=== PATIENT | male | born 1980 | race Caucasian/White ===

== ENCOUNTER 2018-03-19 13:29 | Emergency (ER) | payer OTHER ==
[2018-03-19] MEDS ORDERED: Sodium Chloride 0.9% 1,000 ML IV ONE ×2 (13:59→14:54)
[2018-03-19 14:30] LABS: CHLORIDE,CL 95 mmol/L (101-111); SODIUM,NA 134 mmol/L (135-145)
[2018-03-19] MEDS ORDERED: Magnesium Sulfate/Water 2 GM in Premix Bag 1 BAG IV ONE (14:54)
[2018-03-19] MEDS ORDERED: Ketorolac 30 MG/ML SDV IVPUSH ONE (14:54)
--- NOTE | 2018-03-19 17:01 | EDM.PDOC ---
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 Pt states he has not drank enough water and has been working very hard out in "nearly intolerable heat". Pt began to feel lightheaded, developed a headache, nausea, generalized body ache/cramps, then pt had a witnessed syncopal episode with twitching. Pt struck the Rt face/forehead/frontal scalp when he fell. Now c/o 7/ 10 posterior headache. Pt states he was very hot and sweaty, but then felt suddenly cold with chills, goose bumps, and he quit sweating. Onset: Today Duration: Constant Location: Reports: Head, Generalized Quality: Reports: Ache, Other (cramping) Severity: Severe Improves with: Reports: None Worsens with: Reports: None Associated Symptoms: Reports: No Other Symptoms Right Head Pain Score (Numeric/FACES): 6 - Related Data Allergies Allergy/AdvReac Type Severity Reaction Status Date / Time No Known Allergies Allergy Verified 03/19/18 16:23 Home Meds: Home Meds . [No Known Home Meds] 03/19/18 [History] Past Medical History - Past Health History Medical/Surgical History: Denies Medical/Surgical History Social & Family History - Family History Family Medical History: Noncontributory - Tobacco Use Smoking Status *Q: Never Smoker - Living Situation & Occupation Occupation: Employed ED ROS GENERAL - Review of Systems Review Of Systems: ROS reveals no pertinent complaints other than HPI. ED EXAM, GENERAL - Physical Exam Exam: See Below Exam Limited By: No Limitations General Appearance: Alert, No Apparent Distress, Anxious Eye Exam: Bilateral Eye: EOMI, Normal Fundi, Nystagmus (lateral gaze), PERRL Ears: Normal External Exam, Normal Canal, Hearing Grossly Normal, Normal TMs Nose: Normal Inspection, Normal Mucosa, No Blood Throat/Mouth: Normal Lips, Normal Teeth, Normal Gums, Normal Oropharynx, Normal Voice, No Airway Compromise, Other (dry oral membranes) Head: Normocephalic, Other (superficial abrasion Rt face with contusion) Neck: Normal Inspection, Supple, Non-Tender, Full Range of Motion. No: Lymphadenopathy (L), Lymphadenopathy (R) Respiratory/Chest: No Respiratory Distress, Lungs Clear, Normal Breath Sounds, No Accessory Muscle Use, Chest Non-Tender Cardiovascular: Normal Peripheral Pulses, Regular Rate, Rhythm, No Edema, No Gallop, No JVD, No Murmur, No Rub Peripheral Pulses: 3+: Radial (L), Radial (R) GI/Abdominal: Normal Bowel Sounds, Soft, Non-Tender, No Organomegaly, No Distention, No Abnormal Bruit, No Mass (Male) Exam: Deferred Rectal (Males) Exam: Deferred Back Exam: Normal Inspection, Full Range of Motion. No: CVA Tenderness (L), CVA Tenderness (R) Extremities: Normal Inspection, Normal Range of Motion, Non-Tender, Normal Capillary Refill, No Pedal Edema Neurological: Alert, Oriented, CN II-XII Intact, Normal Cognition, Normal Gait, No Motor/Sensory Deficits, Other (tremor/shaking on arrival, improved following tx in ER with IVF and mag. replacement) Psychiatric: Anxious Skin Exam: Intact, No Rash, Diaphoretic, Pallor EKG INTERPRETATION EKG Date: 03/19/18 Time: 15:11 Rhythm: Other (sinus rhythm) Rate (Beats/Min): 73 [place]: Normal P-Wave: Present QRS: Other (nonspecific intraventricular conduction delay.) ST-T: Normal QT: Normal Comparison: NA - No Prior EKG Course - Vital Signs Last Recorded V/S: Last Vital Signs Temp 36.6 C 03/19/18 13:40 Pulse 84 03/19/18 13:40 Resp 14 03/19/18 13:40 BP 153/100 H 03/19/18 13:40 Pulse Ox 98 03/19/18 13:40 - Orders/Labs/Meds Orders: Active Orders 24 hr Category Date Time Status Blood Glucose Check, Bedside [RC] ONETIME Care 03/19/18 13:57 Active EKG 12 Lead [EKG Documentation Completion] [RC] STAT Care 03/19/18 13:57 Active Orthostatic Vital Signs [RC] ASDIRECTED Care 03/19/18 13:58 Active Chest 1V Frontal [CR] Stat Exams 03/19/18 13:59 Taken Head wo Cont [CT] Stat Exams 03/19/18 13:58 Taken DRUG SCREEN URINE BIORAD [URCHEM] Stat Lab 03/19/18 14:02 Ordered UA W/MICROSCOPIC [URIN] Stat Lab 03/19/18 14:02 Ordered Magnesium Sulfate/Water [Magnesium Sulfate 2 GM in Med 03/19/18 14:54 Active Water 50 ML] 2 gm Premix Bag 1 bag IV ONETIME Medication Orders Magnesium Sulfate 2 gm/ Premix 50 mls @ 25 mls/hr IV ONETIME ONE Stop: 03/19/18 16:53 Last Admin: 03/19/18 15:02 Dose: 25 mls/hr Labs: Laboratory Tests 03/19/18 03/19/18 03/19/18 Range/Units 13:48 13:48 13:48 WBC 5.7 (5.0-10.0) 10^3/uL RBC 4.19 L (4.6-6.2) 10^6/uL Hgb 14.0 (14.0-18.0) g/dL Hct 40.7 (40.0-54.0) % MCV 97.1 (80-100) fL MCH 33.4 (27.0-34.0) pg MCHC 34.4 (33.0-35.0) g/dL Plt Count 131 L (150-450) 10^3/uL Neut % (Auto) 71.9 (42.2-75.2) % Lymph % (Auto) 12.5 L (20.5-50.1) % [place] % (Auto) 14.5 H (2-8) % Eos % (Auto) 0.4 L (1.0-3.0) % Baso % (Auto) 0.7 (0.0-1.0) % D-Dimer, Quantitative 582 H (0-400) ng/mL Sodium 134 L (135-145) mmol/L Potassium 3.7 (3.6-5.0) mmol/L Chloride 95 L (101-111) mmol/L Carbon Dioxide 28.0 (21.0-31.0) mmol/L Anion Gap 14.7 BUN 12 (7-18) mg/dL Creatinine 0.7 (0.6-1.3) mg/dL Est Cr Clr Drug Dosing TNP Estimated GFR (MDRD) > 60 BUN/Creatinine Ratio 17.14 Glucose 93 (74-105) mg/dL Calcium 9.6 (8.4-10.2) mg/dl Magnesium 1.5 L (1.8-2.5) mg/dL Total Bilirubin 1.2 H (0.2-1.0) mg/dL AST 70 H (10-42) IU/L ALT 54 (10-60) IU/L Alkaline Phosphatase 80 (42-121) IU/L Creatine Kinase (26-174) IU/L Creatine Kinase Index (0-2.4) % CK-MB (CK-2) (0.4-4.7) ng/mL Troponin I < 0.02 (0.00-0.02) ng/ml C-Reactive Protein (0.0-1.3) mg/dL Total Protein 7.3 (6.7-8.2) g/dl Albumin 4.3 (3.2-5.5) g/dl Globulin 3.0 Albumin/Globulin Ratio 1.43 TSH, Ultra Sensitive (0.45-5.33) uIu/mL Urine Color (YELLOW) Urine Appearance (CLEAR) Urine pH (5.0-9.0) Ur Specific [place] (1.005-1.030) Urine Protein (NEGATIVE) Urine Glucose (UA) (NEGATIVE) Urine Ketones (NEGATIVE) Urine Occult Blood (NEGATIVE) Urine Nitrite (NEGATIVE) Urine Bilirubin (NEGATIVE) Urine Urobilinogen (0.2-1.0) mg/dL Ur Leukocyte Esterase (NEGATIVE) Urine RBC /HPF Urine WBC (0-5/HPF) /HPF Ur Epithelial Cells /HPF Amorphous Sediment (0/HPF) /HPF Urine Bacteria (0-FEW/HPF) /HPF Urine Mucus /LPF Urine Opiates Screen (NEGATIVE) Ur Oxycodone Screen (NEGATIVE) Urine Methadone Screen (NEGATIVE) Ur Barbiturates Screen (NEGATIVE) U Tricyclic Antidepress (NEGATIVE) Ur Phencyclidine Scrn (NEGATIVE) Ur Amphetamine Screen (NEGATIVE) U Methamphetamines Scrn (NEGATIVE) Urine MDMA Screen (NEGATIVE) U Benzodiazepines Scrn (NEGATIVE) Urine Cocaine Screen (NEGATIVE) U Marijuana (THC) Screen (NEGATIVE) Ethyl Alcohol < 5 mg/dL 03/19/18 03/19/18 03/19/18 Range/Units 13:48 14:02 14:02 WBC (5.0-10.0) 10^3/uL RBC (4.6-6.2) 10^6/uL Hgb (14.0-18.0) g/dL Hct (40.0-54.0) % MCV (80-100) fL MCH (27.0-34.0) pg MCHC (33.0-35.0) g/dL Plt Count (150-450) 10^3/uL Neut % (Auto) (42.2-75.2) % Lymph % (Auto) (20.5-50.1) % [place] % (Auto) (2-8) % Eos % (Auto) (1.0-3.0) % Baso % (Auto) (0.0-1.0) % D-Dimer, Quantitative (0-400) ng/mL Sodium (135-145) mmol/L Potassium (3.6-5.0) mmol/L Chloride (101-111) mmol/L Carbon Dioxide (21.0-31.0) mmol/L Anion Gap BUN (7-18) mg/dL Creatinine (0.6-1.3) mg/dL Est Cr Clr Drug Dosing Estimated GFR (MDRD) BUN/Creatinine Ratio Glucose (74-105) mg/dL Calcium (8.4-10.2) mg/dl Magnesium (1.8-2.5) mg/dL Total Bilirubin (0.2-1.0) mg/dL AST (10-42) IU/L ALT (10-60) IU/L Alkaline Phosphatase (42-121) IU/L Creatine Kinase 390 H (26-174) IU/L Creatine Kinase Index 1.5 (0-2.4) % CK-MB (CK-2) 5.90 H (0.4-4.7) ng/mL Troponin I (0.00-0.02) ng/ml C-Reactive Protein < 0.5 (0.0-1.3) mg/dL Total Protein (6.7-8.2) g/dl Albumin (3.2-5.5) g/dl Globulin Albumin/Globulin Ratio TSH, Ultra Sensitive 2.17 (0.45-5.33) uIu/mL Urine Color Yellow (YELLOW) Urine Appearance Slightly cloudy (CLEAR) Urine pH 7.0 (5.0-9.0) Ur Specific [place] >= 1.030 (1.005-1.030) Urine Protein >=300 H (NEGATIVE) Urine Glucose (UA) Negative (NEGATIVE) Urine Ketones Negative (NEGATIVE) Urine Occult Blood Small H (NEGATIVE) Urine Nitrite Negative (NEGATIVE) Urine Bilirubin Small H (NEGATIVE) Urine Urobilinogen 1.0 (0.2-1.0) mg/dL Ur Leukocyte Esterase Negative (NEGATIVE) Urine RBC 5-10 H /HPF Urine WBC 0-5 (0-5/HPF) /HPF Ur Epithelial Cells Few /HPF Amorphous Sediment Moderate (0/HPF) /HPF Urine Bacteria Rare (0-FEW/HPF) /HPF Urine Mucus Not seen /LPF Urine Opiates Screen Negative (NEGATIVE) Ur Oxycodone Screen Negative (NEGATIVE) Urine Methadone Screen Negative (NEGATIVE) Ur Barbiturates Screen Negative (NEGATIVE) U Tricyclic Antidepress Negative (NEGATIVE) Ur Phencyclidine Scrn Negative (NEGATIVE) Ur Amphetamine Screen Negative (NEGATIVE) U Methamphetamines Scrn Negative (NEGATIVE) Urine MDMA Screen Negative (NEGATIVE) U Benzodiazepines Scrn Negative (NEGATIVE) Urine Cocaine Screen Negative (NEGATIVE) U Marijuana (THC) Screen Negative (NEGATIVE) Ethyl Alcohol mg/dL Meds: Medications Generic Name Dose Route Start Last Admin Trade Name Freq PRN Reason Stop Dose Admin Magnesium Sulfate 2 gm/ Premix 50 mls @ 25 mls/hr 03/19/18 14:54 03/19/18 15: 02 IV 03/19/18 16:53 25 mls/hr ONETIME ONE Administration Discontinued Medications Generic Name Dose Route Start Last Admin Trade Name Freq PRN Reason Stop Dose Admin Sodium Chloride 1,000 mls @ 999 mls/hr 03/19/18 13:59 03/19/18 14:05 Normal Saline IV 03/19/18 14:59 999 mls/hr .BOLUS ONE Administration Sodium Chloride 1,000 mls @ 999 mls/hr 03/19/18 14:54 Normal [place] IV 03/19/18 15:54 .BOLUS ONE Magnesium Sulfate/Dextrose Confirm 03/19/18 14:57 03/19/18 15:03 Magnesium 1 Gm In D5w 100 Ml Administered 03/19/18 14:58 Not Given Dose 200 mls @ as directed .ROUTE .STK-MED ONE Ketorolac Tromethamine 30 mg 03/19/18 14:54 03/19/18 14:59 Toradol IVPUSH 03/19/18 14:55 30 mg ONETIME ONE Administration - Radiology Interpretation Free Text/Narrative:: Chest x-ray: Normal chest x-ray. See rad report. CT head: No acute findings. See rad report. Departure - Departure Time of Disposition: 16:29 Disposition: Home, Self-Care 01 Condition: Fair Clinical Impression: Syncope and collapse, Hypomagnesemia, Dehydration after exertion Heat exhaustion Qualifiers: Encounter type: initial encounter Qualified Code(s): T67.5XXA - Heat exhaustion , unspecified, initial encounter Concussion Qualifiers: Encounter type: initial encounter Loss of consciousness presence/duration: with LOC of 30 min or less Qualified Code(s): S06.0X1A - Concussion with loss of consciousness of 30 minutes or less, initial encounter - Discharge Information Instructions: Concussion, Adult, [id number], Heat Exhaustion Information, Hypomagnesemia, Dehydration, Adult, [id number], Returning to Sports and Activities After a Concussion, Adult Forms: ED Department Discharge Additional Instructions: Rest and off work today. May return to light duty tomorrow with restrictions as indicated on return to work statement. Drink plenty of water. High magnesium diet. Follow up in clinic with your primary doctor in the next 2 weeks for recheck and for release of unrestricted duty. - My Orders Last 24 Hours: My Active Orders 03/19/18 13:57 Blood Glucose Check, Bedside [RC] ONETIME EKG 12 Lead [EKG Documentation Completion] [RC] STAT 03/19/18 13:58 Orthostatic Vital Signs [RC] ASDIRECTED Head wo Cont [CT] Stat 03/19/18 13:59 Chest 1V Frontal [CR] Stat 03/19/18 14:02 DRUG SCREEN URINE BIORAD [URCHEM] Stat UA W/MICROSCOPIC [URIN] Stat 03/19/18 14:54 Magnesium Sulfate/Water [Magnesium Sulfate 2 GM in Water 50 ML] 2 gm Premix Bag 1 bag IV ONETIME - Assessment/Plan Last 24 Hours: My Active Orders 03/19/18 13:57 Blood Glucose Check, Bedside [RC] ONETIME EKG 12 Lead [EKG Documentation Completion] [RC] STAT 03/19/18 13:58 Orthostatic Vital Signs [RC] ASDIRECTED Head wo Cont [CT] Stat 03/19/18 13:59 Chest 1V Frontal [CR] Stat 03/19/18 14:02 DRUG SCREEN URINE BIORAD [URCHEM] Stat UA W/MICROSCOPIC [URIN] Stat 03/19/18 14:54 Magnesium Sulfate/Water [Magnesium Sulfate 2 GM in Water 50 ML] 2 gm Premix Bag 1 bag IV ONETIME I have read and agree with the documentation that has been completed regarding this visit. By signing this record, I attest that the documentation was completed in my physical presence and is an accurate record of the encounter.
--- NOTE | 2018-03-23 12:37 | EKG ---
03/19/2018 - EDIN PATRICIO - TIME: 3:11 p.m. FINDINGS: As per reading, sinus rhythm at 73. [facility] /[id number]
== END 2018-03-19 17:09 | disposition home or self-care (01) ==
LOC: EDBD → DL.ED 13:29
DX: S06.0X1A Concussion with loss of consciousness of 30 minutes or less, initial encounter (principal); T67.5XXA Heat exhaustion, unspecified, initial encounter; R55 Syncope and collapse; S00.83XA Contusion of other part of head, initial encounter; E83.42 Hypomagnesemia; E86.0 Dehydration; W19.XXXA Unspecified fall, initial encounter
CPT/HCPCS: 36415; 70450; 71045; 80053; 80305; 81001; 82550; 82553; 83735; 84443; 84484; 85025; 85379; 86140; 93005; 96361; 96365; 96366; 96375; 99285; G0480; J1885; J7030; J3475

== ENCOUNTER 2018-03-21 07:46 | Emergency (ER) | payer OTHER ==
--- NOTE | 2018-03-21 07:57 | EDM.PDOCBH ---
ED HPI GENERAL MEDICAL PROBLEM - General Chief Complaint: Behavioral/Psych Stated Complaint: [id number] PSYCH Time Seen by Provider: 03/21/18 07:57 Source of Information: Reports: Patient, Old Records, RN, RN Notes Reviewed, Other ( [employer] and [employer] supervisor) History Limitations: Reports: Altered Mental Status - History of Present Illness INITIAL COMMENTS - FREE TEXT/NARRATIVE: Pt presented from [facility] by his [employer] supervisor with report that pt has had 2 days of tremors, anxiety, hyperactivity, diarrhea, and hallucinations. Pt admits that he has been drinking at least one liter of hard alcohol a day for at least 3 weeks prior to coming to NG training at [facility]. Pt denies any history of drug use. He reports that he lives in [place], [place] and receives his medical care from the [facility]. Pt states that he is aware that he is confused, and feels that "an outside force is secretly controlling his thoughts, and his body". He states that he last drank alcohol 4 days ago. Pt denies history of alcohol withdrawal seizures. Onset: Gradual Duration: Day(s): (2-3) Location: Reports: Generalized Severity: Severe Improves with: Reports: None Worsens with: Reports: None - Related Data Allergies Allergy/AdvReac Type Severity Reaction Status Date / Time No Known Allergies Allergy Verified 03/19/18 16:23 Home Meds: Home Meds . [No Known Home Meds] 03/19/18 [History] Past Medical History - Past Health History Medical/Surgical History: Denies Medical/Surgical History Psychiatric History: Reports: Addiction (alcohol) Social & Family History - Family History Family Medical History: Noncontributory - Tobacco Use Smoking Status *Q: Current Every Day Smoker Tobacco Use Within Last Twelve Months: Cigarettes - Alcohol Use Alcohol Use History: Yes Days Per Week of Alcohol Use: 7 Number of Drinks Per Day: 15 (1 liter vodka per day) Total Drinks Per Week: 105 Date of Last Drink: 03/17/18 Alcohol Use in Last Twelve Months: Yes Alcohol Use Frequency: Daily - Recreational Drug Use Recreational Drug Use: No - Living Situation & Occupation Occupation: Employed ED ROS GENERAL - Review of Systems Review Of Systems: ROS reveals no pertinent complaints other than HPI. ED EXAM, BEHAVIORAL HEALTH - Physical Exam Exam: See Below Exam Limited By: Altered Mental Status General Appearance: Alert, No Apparent Distress, Anxious Eye Exam: Bilateral Eye: EOMI, Nystagmus (lateral gaze), PERRL Ears: Hearing Grossly Normal Nose: Normal Inspection, Normal Mucosa, No Blood Throat/Mouth: Normal Inspection, Normal Lips, Normal Teeth, Normal Gums, Normal Oropharynx, Normal Voice, No Airway Compromise Head: Normocephalic, Other (superficial abrasions to face, subacute appearing) Neck: Normal Inspection, Supple, Non-Tender, Full Range of Motion Respiratory/Chest: No Respiratory Distress, Lungs Clear, Normal Breath Sounds, No Accessory Muscle Use, Chest Non-Tender Cardiovascular: Regular Rate, Rhythm, No Edema, No Murmur, Tachycardia GI/Abdominal: Normal Bowel Sounds, Soft, Non-Tender, No Distention, Pelvis Stable. No: Guarding, Rigid, Rebound (Male) Exam: Deferred Rectal (Males) Exam: Deferred Back Exam: Normal Inspection Extremities: Normal Inspection, Normal Range of Motion, Non-Tender, Normal Capillary Refill, No Pedal Edema Neurological: Alert, No Motor/Sensory Deficits, Disoriented to Time, Tremor Psychiatric: Restless, Agitated, Flight of Ideas, Auditory Hallucinations, Paranoid Thoughts. No: Suicidal Thoughts Skin Exam: Warm, Dry. No: Jaundice COURSE, BEHAVIORAL HEALTH COMP - Course Vital Signs: Last Vital Signs Temp 37.2 C 03/21/18 10:38 Pulse 88 03/21/18 10:38 Resp 22 H 03/21/18 10:38 BP 138/97 H 03/21/18 10:38 Pulse Ox 100 03/21/18 10:38 Orders, Labs, Meds: Active Orders 24 hr Category Date Time Status Peripheral IV Care [RC] . DIRECTED Care 03/21/18 08:32 Active UA W/MICROSCOPIC [URIN] Stat Lab 03/21/18 08:52 Ordered Magnesium Sulfate/D5W [Magnesium 1 GM in D5W 100 ML] 1 Med 03/21/18 10:50 Ordered gm Premix Bag 1 bag IV ONETIME Sodium Chloride 0.9% [Normal Saline] 1,000 ml Med 03/21/18 10:49 Active IV .BOLUS Sodium Chloride 0.9% [Saline Flush] Med 03/21/18 08:32 Active 10 ml FLUSH ASDIRECTED PRN Peripheral IV Insertion Adult [OM.PC] Stat Oth 03/21/18 08:31 Ordered Medication Orders Sodium Chloride (Normal Saline) 1,000 mls @ 999 mls/hr IV .BOLUS ONE Stop: 03/21/18 11:49 Sodium Chloride (Saline Flush) 10 ml FLUSH ASDIRECTED PRN PRN Reason: Keep Vein Open Last Admin: 03/21/18 08:57 Dose: 10 ml Laboratory Tests 03/21/18 03/21/18 03/21/18 Range/Units 08:20 08:45 08:45 WBC 8.1 (5.0-10.0) 10^3/uL RBC 4.39 L (4.6-6.2) 10^6/uL Hgb 14.7 (14.0-18.0) g/dL Hct 43.3 (40.0-54.0) % MCV 98.6 (80-100) fL MCH 33.5 (27.0-34.0) pg MCHC 33.9 (33.0-35.0) g/dL Plt Count 157 (150-450) 10^3/uL Neut % (Auto) 77.9 H (42.2-75.2) % Lymph % (Auto) 10.4 L (20.5-50.1) % Moffat % (Auto) 11.1 H (2-8) % Eos % (Auto) 0.1 L (1.0-3.0) % Baso % (Auto) 0.5 (0.0-1.0) % PT 9.3 (9.0-12.0) SEC INR 0.9 (0.9-1.2) APTT 25.4 (22.0-34.0) SEC Sodium (135-145) mmol/L Potassium (3.6-5.0) mmol/L Chloride (101-111) mmol/L Carbon Dioxide (21.0-31.0) mmol/L Anion Gap BUN (7-18) mg/dL Creatinine (0.6-1.3) mg/dL Est Cr Clr Drug Dosing mL/min Estimated GFR (MDRD) BUN/Creatinine Ratio Glucose (74-105) mg/dL Calcium (8.4-10.2) mg/dl Magnesium (1.8-2.5) mg/dL Total Bilirubin (0.2-1.0) mg/dL AST (10-42) IU/L ALT (10-60) IU/L Alkaline Phosphatase (42-121) IU/L Total Protein (6.7-8.2) g/dl Albumin (3.2-5.5) g/dl Globulin Albumin/Globulin Ratio TSH, Ultra Sensitive (0.45-5.33) uIu/mL Urine Color (YELLOW) Urine Appearance (CLEAR) Urine pH (5.0-9.0) Ur Specific [place] (1.005-1.030) Urine Protein (NEGATIVE) Urine Glucose (UA) (NEGATIVE) Urine Ketones (NEGATIVE) Urine Occult Blood (NEGATIVE) Urine Nitrite (NEGATIVE) Urine Bilirubin (NEGATIVE) Urine Urobilinogen (0.2-1.0) mg/dL Ur Leukocyte Esterase (NEGATIVE) Urine RBC /HPF Urine WBC (0-5/HPF) /HPF Ur Epithelial Cells /HPF Amorphous Sediment (0/HPF) /HPF Urine Bacteria (0-FEW/HPF) /HPF Urine Mucus /LPF Salicylates Urine Opiates Screen Negative (NEGATIVE) Ur Oxycodone Screen Negative (NEGATIVE) Urine Methadone Screen Negative (NEGATIVE) Acetaminophen Ur Barbiturates Screen Negative (NEGATIVE) U Tricyclic Antidepress Negative (NEGATIVE) Ur Phencyclidine Scrn Negative (NEGATIVE) Ur Amphetamine Screen Negative (NEGATIVE) U Methamphetamines Scrn Negative (NEGATIVE) Urine MDMA Screen Negative (NEGATIVE) U Benzodiazepines Scrn Negative (NEGATIVE) Urine Cocaine Screen Negative (NEGATIVE) U Marijuana (THC) Screen Negative (NEGATIVE) Ethyl Alcohol mg/dL 03/21/18 03/21/18 03/21/18 Range/Units 08:45 08:45 08:45 WBC (5.0-10.0) 10^3/uL RBC (4.6-6.2) 10^6/uL Hgb (14.0-18.0) g/dL Hct (40.0-54.0) % MCV (80-100) fL MCH (27.0-34.0) pg MCHC (33.0-35.0) g/dL Plt Count (150-450) 10^3/uL Neut % (Auto) (42.2-75.2) % Lymph % (Auto) (20.5-50.1) % Moffat % (Auto) (2-8) % Eos % (Auto) (1.0-3.0) % Baso % (Auto) (0.0-1.0) % PT (9.0-12.0) SEC INR (0.9-1.2) APTT (22.0-34.0) SEC Sodium 137 (135-145) mmol/L Potassium 3.3 L (3.6-5.0) mmol/L Chloride 99 L (101-111) mmol/L Carbon Dioxide 26.0 (21.0-31.0) mmol/L Anion Gap 15.3 BUN 8 (7-18) mg/dL Creatinine 0.6 (0.6-1.3) mg/dL Est Cr Clr Drug Dosing 188.61 mL/min Estimated GFR (MDRD) > 60 BUN/Creatinine Ratio 13.33 Glucose 90 (74-105) mg/dL Calcium 9.3 (8.4-10.2) mg/dl Magnesium 1.7 L (1.8-2.5) mg/dL Total Bilirubin 1.0 (0.2-1.0) mg/dL AST 53 H (10-42) IU/L ALT 45 (10-60) IU/L Alkaline Phosphatase 82 (42-121) IU/L Total Protein 7.7 (6.7-8.2) g/dl Albumin 4.6 (3.2-5.5) g/dl Globulin 3.1 Albumin/Globulin Ratio 1.48 TSH, Ultra Sensitive 2.23 (0.45-5.33) uIu/mL Urine Color (YELLOW) Urine Appearance (CLEAR) Urine pH (5.0-9.0) Ur Specific [place] (1.005-1.030) Urine Protein (NEGATIVE) Urine Glucose (UA) (NEGATIVE) Urine Ketones (NEGATIVE) Urine Occult Blood (NEGATIVE) Urine Nitrite (NEGATIVE) Urine Bilirubin (NEGATIVE) Urine Urobilinogen (0.2-1.0) mg/dL Ur Leukocyte Esterase (NEGATIVE) Urine RBC /HPF Urine WBC (0-5/HPF) /HPF Ur Epithelial Cells /HPF Amorphous Sediment (0/HPF) /HPF Urine Bacteria (0-FEW/HPF) /HPF Urine Mucus /LPF Salicylates < 4 Urine Opiates Screen (NEGATIVE) Ur Oxycodone Screen (NEGATIVE) Urine Methadone Screen (NEGATIVE) Acetaminophen < 10 Ur Barbiturates Screen (NEGATIVE) U Tricyclic Antidepress (NEGATIVE) Ur Phencyclidine Scrn (NEGATIVE) Ur Amphetamine Screen (NEGATIVE) U Methamphetamines Scrn (NEGATIVE) Urine MDMA Screen (NEGATIVE) U Benzodiazepines Scrn (NEGATIVE) Urine Cocaine Screen (NEGATIVE) U Marijuana (THC) Screen (NEGATIVE) Ethyl Alcohol < 5 mg/dL 03/21/18 Range/Units 08:52 WBC (5.0-10.0) 10^3/uL RBC (4.6-6.2) 10^6/uL Hgb (14.0-18.0) g/dL Hct (40.0-54.0) % MCV (80-100) fL MCH (27.0-34.0) pg MCHC (33.0-35.0) g/dL Plt Count (150-450) 10^3/uL Neut % (Auto) (42.2-75.2) % Lymph % (Auto) (20.5-50.1) % Moffat % (Auto) (2-8) % Eos % (Auto) (1.0-3.0) % Baso % (Auto) (0.0-1.0) % PT (9.0-12.0) SEC INR (0.9-1.2) APTT (22.0-34.0) SEC Sodium (135-145) mmol/L Potassium (3.6-5.0) mmol/L Chloride (101-111) mmol/L Carbon Dioxide (21.0-31.0) mmol/L Anion Gap BUN (7-18) mg/dL Creatinine (0.6-1.3) mg/dL Est Cr Clr Drug Dosing mL/min Estimated GFR (MDRD) BUN/Creatinine Ratio Glucose (74-105) mg/dL Calcium (8.4-10.2) mg/dl Magnesium (1.8-2.5) mg/dL Total Bilirubin (0.2-1.0) mg/dL AST (10-42) IU/L ALT (10-60) IU/L Alkaline Phosphatase (42-121) IU/L Total Protein (6.7-8.2) g/dl Albumin (3.2-5.5) g/dl Globulin Albumin/Globulin Ratio TSH, Ultra Sensitive (0.45-5.33) uIu/mL Urine Color Dark yellow (YELLOW) Urine Appearance Slightly cloudy (CLEAR) Urine pH 6.5 (5.0-9.0) Ur Specific [place] 1.025 (1.005-1.030) Urine Protein >=300 H (NEGATIVE) Urine Glucose (UA) Negative (NEGATIVE) Urine Ketones 15 H (NEGATIVE) Urine Occult Blood Trace-intact H (NEGATIVE) Urine Nitrite Negative (NEGATIVE) Urine Bilirubin Small H (NEGATIVE) Urine Urobilinogen 1.0 (0.2-1.0) mg/dL Ur Leukocyte Esterase Negative (NEGATIVE) Urine RBC 5-10 H /HPF Urine WBC 0-5 (0-5/HPF) /HPF Ur Epithelial Cells Rare /HPF Amorphous Sediment Rare (0/HPF) /HPF Urine Bacteria Rare (0-FEW/HPF) /HPF Urine Mucus Few H /LPF Salicylates Urine Opiates Screen (NEGATIVE) Ur Oxycodone Screen (NEGATIVE) Urine Methadone Screen (NEGATIVE) Acetaminophen Ur Barbiturates Screen (NEGATIVE) U Tricyclic Antidepress (NEGATIVE) Ur Phencyclidine Scrn (NEGATIVE) Ur Amphetamine Screen (NEGATIVE) U Methamphetamines Scrn (NEGATIVE) Urine MDMA Screen (NEGATIVE) U Benzodiazepines Scrn (NEGATIVE) Urine Cocaine Screen (NEGATIVE) U Marijuana (THC) Screen (NEGATIVE) Ethyl Alcohol mg/dL Medications Generic Name Dose Route Start Last Admin Trade Name Freq PRN Reason Stop Dose Admin Sodium Chloride 1,000 mls @ 999 mls/hr 03/21/18 10:49 Normal Saline IV 03/21/18 11:49 .BOLUS ONE Sodium Chloride 10 ml 03/21/18 08:32 03/21/18 08:57 Saline Flush FLUSH 10 ml ASDIRECTED PRN Administration Keep Vein Open Discontinued Medications Generic Name Dose Route Start Last Admin Trade Name Freq PRN Reason Stop Dose Admin Haloperidol Lactate 10 mg 03/21/18 10:49 Haldol IM 03/21/18 10:50 ONETIME ONE Multivitamins/Minerals 10 ml/ 1,011.2 mls @ 999 mls/hr 03/21/18 08:30 08:57 Thiamine HCl 100 mg/ Folic IV 03/21/18 09:30 999 mls/hr Acid 1 mg/ Lactated Ringer's .BOLUS ONE Administration Lorazepam 2 mg 03/21/18 08:30 03/21/18 08:57 Ativan IVPUSH 03/21/18 08:31 2 mg ONETIME ONE Administration Lorazepam 2 mg 03/21/18 09:28 03/21/18 09:38 Ativan IVPUSH 03/21/18 09:29 2 mg ONETIME ONE Administration Lorazepam 2 mg 03/21/18 10:16 03/21/18 10:20 Ativan IVPUSH 03/21/18 10:17 2 mg ONETIME ONE Administration Lorazepam 2 mg 03/21/18 10:49 Ativan IVPUSH 03/21/18 10:50 ONETIME ONE Departure - Departure Time of Disposition: 10:34 Disposition: DC/[facility]fer to [facility] 02 Condition: Serious Clinical Impression: Alcohol withdrawal delirium, acute, hyperactive, Hypomagnesemia, Diarrhea due to alcohol intake - Discharge Information Referrals: PCP,None [Primary Care Provider] - Forms: ED Department Discharge, Interfacility Transfer EMTALA - My Orders Last 24 Hours: My Active Orders 03/21/18 08:31 Peripheral IV Insertion Adult [OM.PC] Stat 03/21/18 08:32 Peripheral IV Care [RC] . DIRECTED Sodium Chloride 0.9% [Saline Flush] 10 ml FLUSH ASDIRECTED PRN 03/21/18 08:52 UA W/MICROSCOPIC [URIN] Stat 03/21/18 10:49 Sodium Chloride 0.9% [Normal Saline] 1,000 ml IV .BOLUS 03/21/18 10:50 Magnesium Sulfate/D5W [Magnesium 1 GM in D5W 100 ML] 1 gm Premix Bag 1 bag IV ONETIME - Assessment/Plan Last 24 Hours: My Active Orders 03/21/18 08:31 Peripheral IV Insertion Adult [OM.PC] Stat 03/21/18 08:32 Peripheral IV Care [RC] . DIRECTED Sodium Chloride 0.9% [Saline Flush] 10 ml FLUSH ASDIRECTED PRN 03/21/18 08:52 UA W/MICROSCOPIC [URIN] Stat 03/21/18 10:49 Sodium Chloride 0.9% [Normal Saline] 1,000 ml IV .BOLUS 03/21/18 10:50 Magnesium Sulfate/D5W [Magnesium 1 GM in D5W 100 ML] 1 gm Premix Bag 1 bag IV ONETIME
[2018-03-21] MEDS ORDERED: LORazepam 2 MG/ML Syringe IVPUSH ONE ×4 (08:30→10:49)
[2018-03-21] MEDS ORDERED: MVI, Adult with Vitamin K 10 ML, Thiamine 100 MG, Folic Acid 1 MG in Lactated Ringers 1... IV ONE ×4 (08:30)
[2018-03-21] MEDS: Sodium Chloride 0.9% 10 ML Syringe FLUSH PRN ×2 (08:57→10:56)
[2018-03-21 09:16] LABS: ANION GAP 15.3; CHLORIDE,CL 99 mmol/L (101-111); SODIUM,NA 137 mmol/L (135-145)
[2018-03-21 09:17] LABS: ACETAMINOPHEN < 10
[2018-03-21] MEDS ORDERED: Sodium Chloride 0.9% 1,000 ML IV ONE (10:49)
[2018-03-21] MEDS ORDERED: Haloperidol Lactate 5 MG/ML SDV IM ONE (10:49)
== END 2018-03-21 11:55 ==
LOC: DL.ED 07:46
DX: F10.231 Alcohol dependence with withdrawal delirium (principal); E83.42 Hypomagnesemia; F90.9 Attention-deficit hyperactivity disorder, unspecified type; R19.7 Diarrhea, unspecified; F17.210 Nicotine dependence, cigarettes, uncomplicated
CPT/HCPCS: 36415; 80053; 80305; 81001; 83735; 84443; 85025; 85610; 85730; 96365; 96367; 96372; 96375; 96376; 99285; G0480; J1630; J2060; J3411; J3475; J7030; J7050; J7120; J3490